=== PATIENT | female | born 1965 | race African-American/Black ===

== ENCOUNTER → 2017-11-08 | Outpatient (CLI) | payer OTHER ==
[~2017-11-08] MED LIST: ALLEGRA ALLERG180 MG PO; GLUCOTROL XL10 MG PO; GLUCOTROL XL2.5 MG PO; GLUCOTROL XL5 MG PO; LISINOPRIL20 MG PO; NORVASC5 MG PO; PREDNISONE 20 M20 M1 PO; PROTONIX40 M1 PO; VITAMIN D1000 UNI1; VITAMIN D2000 UNI1 PO; ZANTAC 150MG T150 MG PO; ZOFRAN ODT4 MG PO
--- NOTE | ~2017-11-08 | EKG ---
[place] [address] [facility] [employer] [place] [address] ELECTROCARDIOGRAM REPORT Name: ISAÍAS SPEARS [id number] Admission: 11/08/17 Attend Phys: Melissa Blanchard Discharge: Date of : 67 Report #: [id number] THIS REPORT FOR: //name// [facility] Test Date: 2017-11-08 Test Time: 09:06:08 Pat Name: ISAÍAS SPEARS Department: Room: Gender: F [employer] Instructor: LEONORA : 1965 Requested By: Lele Bejarano Order Number: [id number] MD: Wagner Cabral Measurements Intervals [place] Rate: 64 P: 49 NE: 182 QRS: 48 QRSD: 96 T: 45 QT: 396 QTc: 409 Interpretive Statements Sinus rhythm Normal tracing Compared to ECG 04/08/2014 06:44:16 Sinus bradycardia no longer present Electronically Signed On 11-08-2017 17:11:38 CDT by Wagner Cabral [email or web address] <ELECTRONICALLY SIGNED> By: Wagner Cabral MD, [facility] 11/08/17 1711 [id number] 5 Wagner Cabral MD, FACC /EPI
[2017-11-08 08:46] LABS: ABSOLUTE NEUTROPHILS 2.7 thou/uL (1.4-8.2); BASOPHILS 1.4 % (0.0-2.0); EOSINOPHILS 3.7 % (0.0-3.0); HEMATOCRIT 35.8 % (37.0-47.0); MCH 27.2 pg (26.0-34.0); MCHC 33.4 g/dL (28.0-37.0); MCV 81.2 fL (80.0-100.0); MONOCYTES 9.7 % (1.0-8.0); PLATELET COUNT 211 thou/uL (150-400); POLYS 44.2 % (36.0-66.0); RBC 4.41 mil/uL (4.20-5.00); RDW 13.8 % (10.5-14.5)
[2017-11-08 09:00] LABS: ALBUMIN 3.4 g/dL (3.4-5.0); CALCIUM 9.3 mg/dL (8.5-10.1); CREATININE 0.9 mg/dL (0.6-1.0); POTASSIUM 3.8 mmol/L (3.5-5.1); PROTIME 9.7 Seconds (9.3-11.4); TOTAL BILIRUBIN 0.1 mg/dL (<0.1-1.0); TOTAL PROTEIN 7.5 g/dL (6.4-8.2)
== END ==
LOC: CV 08:10
PROVIDERS: Neuromusculoskeletal Medicine & OMM
DX: Z01.818 Encounter for other preprocedural examination (principal); M25.512 Pain in left shoulder

== ENCOUNTER → 2020-04-23 | Outpatient (CLI) | payer OTHER | LOC: SJCVCIMAG 11:10 | PROVIDERS: ATTEND Internal Medicine | DX: R00.2 Palpitations (principal) ==